=== PATIENT | male | born 1975 | race Caucasian/White ===

== ENCOUNTER 2018-01-20 17:00 | Emergency (ER) | payer SELFPAY ==
[~2018-01-20] VITALS: Ht 167.6 cm; Wt 69.4 kg
[2018-01-20 17:02] VITALS: Ht 167.6 cm; Wt 69.4 kg
[2018-01-20 17:32] VITALS: BP 136/95
== END 2018-01-20 17:32 | disposition home or self-care (01) ==
LOC: ED 17:00
DX: H11.31 Conjunctival hemorrhage, right eye (principal)